=== PATIENT | female | born 1995 | race Caucasian/White ===

== ENCOUNTER 2018-06-20 14:29 | Inpatient (IN) ==
--- NOTE | 2018-06-20 14:38 | Emergency Department Report ---
HPI - General Stated complaint: Source: patient, family, EMS Mode of arrival: EMS Limitations: no limitations - History of Present Illness HPI Narrative: Patient is a 22-year-old female presents emergency room for evaluation of active labor, no movement or heart tones. Patient 3090 one half weeks, by EMS report patient has been in active labor current contractions or 2 minutes. Patient states she has not been able to feel baby move in the last hour EMS is unable to obtain heart tones. EMS diverted from [place] to [facility] when patient heart tones not detectable. - Related Data Home Medications Medication Instructions Recorded Confirmed NO ROUTINE MEDS #0 08/14/16 Allergies Allergy/AdvReac Type Severity Reaction Status Date / Time No Known Allergies Allergy Unverified 08/14/16 18:40 Review of Systems Constitutional: Denies: fever, chills ENT: Denies: throat pain, dental pain Cardiovascular: Denies: chest pain, palpitations Respiratory: Denies: cough, dyspnea, wheezes Gastrointestinal: Reports: abdominal pain. Denies: nausea, vomiting Genitourinary: Denies: frequency, hematuria Psychiatric: Denies: anxiety, depression Endocrine: Denies: fatigue Hematological/Lymphatic: Denies: easy bleeding PFSH - Social History Smoking status: Never smoker Substance use type: does not use Alcohol intake frequency: does not drink Physical Exam - General General appearance: alert, in distress - Head Head exam: normocephalic - Chest Chest inspection: Present: symmetric chest wall rise - Respiratory Respiratory exam: Absent: respiratory distress - Cardiovascular Cardiovascular exam: Present: normal rhythm - Abdominal Exam Abdominal exam: Present: soft, other (consistent with term) - Extremities Exam Extremities exam: Present: full ROM - Skin Skin exam: Present: warm, dry - Neurological Exam Neurological exam: Present: alert, oriented X3 - Psychiatric Psychiatric exam: Present: normal affect, normal mood OB/Uterine Contractions - MDM Narrative Medical decision making narrative: Dr. White has been in the emergency department was able to obtain good heart tones, patient is currently -3 and 70%. Dr. White will take over to OB for further labor - Differential Diagnosis Likely: normal delivery at term Disposition Clinical Impression: Active labor Disposition: 02 To OB Triage Condition: Stable Time of Disposition: 14:37 - Seen By: physician
[2018-06-20] MEDS: LR 1,000 ML IV PRN ×2 (14:50→15:31)
[2018-06-20] MEDS ORDERED: ACETAMINOPHEN 500 MG TABLET PO PRN (14:58)
[2018-06-20] MEDS ORDERED: CALCIUM CARBONATE Chewable 500mg TABLET PO PRN (14:58)
[2018-06-20] MEDS ORDERED: LIDOCAINE 1% (10mg/ml) 2mL INJ PF SDV ID PRN (14:58)
[2018-06-20] MEDS ORDERED: MAG-AL + SIM ORAL LIQUID 30ml PO PRN (14:58)
[2018-06-20] MEDS ORDERED: CARBOPROST 250 MCG/ML INJECTION IM PRN (14:58)
[2018-06-20] MEDS ORDERED: METHYLERGONOVINE 0.2 MG/ML INJECTION IM PRN (14:58)
[2018-06-20] MEDS ORDERED: SALINE FLUSH 10ml SYRINGE IV PRN (14:58)
[2018-06-20] MEDS: D5LR 1,000 ML IV SCH (15:35)
--- OUTSIDE RECORDS SUMMARY | 2018-06-20 15:40 | External Medical Summary | Referral Summary ---
:1995 Author Organization Via [facility] Address [address] [place] [address] Care Team Providers Name Role Phone No PCP, Pt States Primary Care Physician Encounter VC [facility] [id number] Date(s): 06/17/18 - 06/18/18 [facility] [address], [place] [address] Encounter Diagnosis (Discharge Diagnosis) - 06/18/18 Discharge Disposition: 01-Home or Self Care Attending Physician: No PCP, Pt States Admitting Physician: No PCP, Pt States Vital Signs Most recent to oldest [Reference Range]: 1 Temperature Oral [35.8-37.3 degC] 36.4 degC (06/18/18 1:30 AM) Heart Rate Monitored [60-100 bpm] 66 bpm (06/18/18 1:30 AM) Blood Pressure [90-140/60-90 mmHg] 113/55 mmHg (06/18/18 1:30 AM) Problem List Condition Effective Dates Status Health Status Informant Acute pain(Confirmed) Active Unspecified depressive Active disorder(Confirmed) (Confirmed) 08/05/16 - 05/03/17 Resolved (Confirmed) 09/14/17 Active Allergies, Adverse Reactions, Alerts No Known Allergies Medications acetaminophen 650 mg, 0 Refill(s) Start Date: 06/17/18 Status: OrderedColace 100 mg oral capsule 100 mg 1 caps, Oral, BID, as needed for constipation, # 60 caps, 2 Refill(s) Start Date: 05/04/17 Stop Date: 08/02/17 Status: Orderedferrous sulfate 325 mg (65 mg elemental iron) oral tablet 325 mg 1 tabs, Oral, TID, # 270 tabs, 0 Refill(s), Pharmacy: [id number], 1 tabs Oral TID Start Date: 12/15/16 Status: OrderedPrenatal Multivitamins 1 tabs, Oral, Daily, 0 Refill(s) Start Date: 10/03/15 Status: Ordered Results Urinalysis Most recent to oldest [Reference Range]: 1 UA Color Yellow (06/18/18 1:27 AM) UA Appear Sl Cloudy (06/18/18 1:27 AM) UA pH [5.0-8.0] 5.0 (06/18/18 1:27 AM) UA Leuk Est [Negative] Negative (06/18/18 1:27 AM) UA Nitrite [Negative] Negative (06/18/18 1:27 AM) UA Protein [Negative] Pos 1+ *ABN* (06/18/18 1:27 AM) UA Glucose [Negative] Negative (06/18/18 1:27 AM) UA Ketones [Negative] Trace *ABN* (06/18/18 1:27 AM) UA Urobilinogen [<1.0 mg/dL] 2.0 mg/dL *ABN* (06/18/18 1:27 AM) UA Bili [Negative] Negative (06/18/18 1:27 AM) UA Blood [Negative] Negative (06/18/18 1:27 AM) UA Spec Grav [1.003-1.030] 1.025 (06/18/18 1:27 AM) Type Clean Catch (06/18/18 1:27 AM) UA WBC [0-4] 0-2 (06/18/18 1:27 AM) UA RBC [0-2] 0-2 (06/18/18 1:27 AM) Epithelial Cells 0-2 (06/18/18 1:27 AM) UA Bacteria None Seen (06/18/18 1:27 AM) UA Mucous Present (06/18/18 1:27 AM) Immunizations Given and Recorded Vaccine Date Status Refusal Reason tetanus/diphth/pertuss (Tdap) adult/adol 04/13/17 Given tetanus/diphth/pertuss (Tdap) adult/adol 05/31/16 Given Social History Social History Type Response Smoking Status Never smoker; Concerns about tobacco use in household: Yes1 entered on: 04/29/17 1Boyfriend smokes outside.
--- OUTSIDE RECORDS SUMMARY | 2018-06-20 15:40 | External Medical Summary | Referral Summary ---
:1995 [address] [facility] Address [address] [place] [address] Care Team Providers Name Role Phone Ruben Osman Primary Care Physician Encounter [facility] [id number] Date(s): 04/13/17 - 04/13/[address] [facility] [address] [place] [address] [place] Discharge Diagnosis: Encounter for supervision of normal Discharge Disposition: 01-Home or Self Care Attending Physician: Trinidad Romero MD Admitting Physician: Ruben Osman MD Vital Signs Most recent to oldest [Reference Range]: 1 Temperature Oral [35.8-37.3 degC] 36.3 degC (04/13/17 10:41 AM) Peripheral Pulse Rate [60-100 bpm] 74 bpm (04/13/17 10:41 AM) Respiratory Rate [14-20 br/min] 20 br/min (04/13/17 10:41 AM) Blood Pressure [90-140/60-90 mmHg] 118/58 mmHg (04/13/17 10:41 AM) Problem List Condition Effective Dates Status Health Status Informant Acute pain(Confirmed) Active Unspecified depressive Active disorder(Confirmed) (Confirmed) 08/05/16 Active Allergies, Adverse Reactions, Alerts No Known Allergies Medications ferrous sulfate 325 mg (65 mg elemental iron) oral tablet 325 mg 1 tabs, Oral, TID, # 270 tabs, 0 Refill(s), Pharmacy: [facility], 1 tabs Oral TID Start Date: 12/15/16 Status: OrderedFlagyl 500 mg oral tablet 500 mg 1 tabs, Oral, q12hr, # 14 tabs, 0 Refill(s), Pharmacy: [facility], 1 tabs Oral q12hr,x7 days Start Date: 03/07/17 Stop Date: 03/14/17 Status: OrderedPrenatal Multivitamins 1 tabs, Oral, Daily, 0 Refill(s) Start Date: 10/03/15 Status: OrderedZantac 75 oral tablet 75 mg 1 tabs, Oral, BID, # 14 tabs, 0 Refill(s), Pharmacy: [id number], 1 tabs Oral BID,x7 days Start Date: 03/07/17 Stop Date: 03/14/17 Status: Ordered Results Urinalysis Most recent to oldest [Reference Range]: 1 UA Color Yellow (04/13/17 11:56 AM) UA Appear Clear (04/13/17 11:56 AM) UA pH [5.0-8.0] 6.0 (04/13/17 11:56 AM) UA Leuk Est [Negative] Pos 3+ *ABN* (04/13/17 11:56 AM) UA Nitrite [Negative] Negative (04/13/17 11:56 AM) UA Protein [Negative] Trace *ABN* (04/13/17 11:56 AM) UA Glucose [Negative] Negative (04/13/17 11:56 AM) UA Ketones [Negative] Negative (04/13/17 11:56 AM) UA Urobilinogen [<=1.0 mg/dL] 0.2 mg/dL (04/13/17 11:56 AM) UA Bili [Negative] Negative (04/13/17 11:56 AM) UA Blood [Negative] Negative (04/13/17 11:56 AM) UA Spec Grav [1.003-1.030] 1.025 (04/13/17 11:56 AM) Type Clean Catch (04/13/17 11:56 AM) Protein Urine Dipstick Trace (04/13/17 10:48 AM) Ketones Urine Dipstick Negative (04/13/17 10:48 AM) Glucose Urine Dipstick Negative (04/13/17 10:48 AM) UA WBC [0-4] 10-20 *ABN* (04/13/17 11:56 AM) UA RBC [0-4] 0-4 (04/13/17 11:56 AM) Epithelial Cells 10-20 (04/13/17 11:56 AM) UA Bacteria Rare (04/13/17 11:56 AM) Immunizations Given and Recorded Vaccine Date Status Refusal Reason tetanus/diphth/pertuss (Tdap) adult/adol 04/13/17 Given tetanus/diphth/pertuss (Tdap) adult/adol 05/31/16 Given Procedures No data available for this section Social History Social History Type Response Smoking Status Never smoker; Concerns about tobacco use in household: Yes1 1Boyfriend smokes outside. Assessment and Plan No data available for this section
--- OUTSIDE RECORDS SUMMARY | 2018-06-20 15:40 | External Medical Summary | Referral Summary ---
:1995 Author Organization Via [facility] Address [address] [place] [address] Care Team Providers Name Role Phone Ruben Osman Primary Care Physician Encounter [facility] Date(s): 04/22/17 - 04/22/17 [facility] [address], [place] [address] Discharge Disposition: 01-Home or Self Care Attending Physician: Nicole Alonso MD Admitting Physician: Nicole Alonso MD Vital Signs Most recent to oldest [Reference Range]: 1 Temperature Oral [35.8-37.3 degC] 36.8 degC (04/22/17 9:19 AM) Peripheral Pulse Rate [60-100 bpm] 79 bpm (04/22/17 9:19 AM) Respiratory Rate [14-20 br/min] 18 br/min (04/22/17 9:19 AM) Blood Pressure [90-140/60-90 mmHg] 110/49 mmHg (04/22/17 9:19 AM) Problem List Condition Effective Dates Status Health Status Informant Acute pain(Confirmed) Active Unspecified depressive Active disorder(Confirmed) (Confirmed) 08/05/16 Active Allergies, Adverse Reactions, Alerts No Known Allergies Medications ferrous sulfate 325 mg (65 mg elemental iron) oral tablet 325 mg 1 tabs, Oral, TID, # 270 tabs, 0 Refill(s), Pharmacy: [facility], 1 tabs Oral TID Start Date: 12/15/16 Status: OrderedFlagyl 500 mg oral tablet 500 mg 1 tabs, Oral, q12hr, # 14 tabs, 0 Refill(s), Pharmacy: [facility], 1 tabs Oral q12hr,x7 days Start Date: 03/07/17 Stop Date: 5/7/17 Status: OrderedmetroNIDAZOLE 500 mg oral tablet 500 mg 1 tabs, Oral, q12hr, X 7 days, # 14 tabs, 0 Refill(s), Pharmacy: [facility], 1 tabs Oral q12hr,x7 days Start Date: 04/22/17 Stop Date: 04/29/17 Status: OrderedPrenatal Multivitamins 1 tabs, Oral, Daily, 0 Refill(s) Start Date: 10/03/15 Status: OrderedZantac 75 oral tablet 75 mg 1 tabs, Oral, BID, # 14 tabs, 0 Refill(s), Pharmacy: [facility], 1 tabs Oral BID,x7 days Start Date: 03/07/17 Stop Date: 03/14/17 Status: Ordered Results Urinalysis Most recent to oldest [Reference Range]: 1 UA Color Yellow (04/22/17 9:45 AM) UA Appear Sl Cloudy (04/22/17 9:45 AM) UA pH [5.0-8.0] 7.0 (04/22/17 9:45 AM) UA Leuk Est [Negative] Pos 1+ *ABN* (04/22/17 9:45 AM) UA Nitrite [Negative] Negative (04/22/17 9:45 AM) UA Protein [Negative] Negative (04/22/17 9:45 AM) UA Glucose [Negative] Negative (04/22/17 9:45 AM) UA Ketones [Negative] Negative (04/22/17 9:45 AM) UA Urobilinogen [<1.0] Negative (04/22/17 9:45 AM) UA Bili [Negative] Negative (04/22/17 9:45 AM) UA Blood [Negative] Negative (04/22/17 9:45 AM) UA Spec Grav [1.003-1.030] 1.025 (04/22/17 9:45 AM) Type Clean Catch (04/22/17 9:45 AM) UA WBC [0-4] 2-5 (04/22/17 9:45 AM) UA RBC [0-2] 0-2 (04/22/17 9:45 AM) Epithelial Cells 2-5 (04/22/17 9:45 AM) UA Bacteria Rare (04/22/17 9:45 AM) UA Hyal Cast [0-3] 1-3 (04/22/17 9:45 AM) UA Mucous Present (04/22/17 9:45 AM) Microbiology Reports TEST:Affirm Vaginitis Panel STATUS:Auth (Verified) BODY SITE: SOURCE:Vaginal COLLECTED DATE/TIME:04/22/17 9:47 AMAffirm Vaginitis PanelNegative for Trichomonas vaginalis Positive for Gardnerella vaginalis Negative for Debra species Immunizations Given and Recorded Vaccine Date Status Refusal Reason tetanus/diphth/pertuss (Tdap) adult/adol 04/13/17 Given tetanus/diphth/pertuss (Tdap) adult/adol 05/31/16 Given Procedures No data available for this section Social History Social History Type Response Smoking Status Never smoker; Concerns about tobacco use in household: Yes1 1Boyfriend smokes outside. Assessment and Plan No data available for this section
--- OUTSIDE RECORDS SUMMARY | 2018-06-20 15:40 | External Medical Summary | Referral Summary ---
:1995 Author Organization Via [facility] Address [address] [place] [address] Care Team Providers Name Role Phone Zahida Gaona Primary Care Physician Encounter [facility] Date(s): 04/29/17 - 04/29/17 [facility] [address] [place] [address] [place] Discharge Diagnosis: Supervision of normal Discharge Disposition: 01-Home or Self Care Attending Physician: Andrez Flores MD Admitting Physician: Ruben Monroe MD Vital Signs Most recent to oldest [Reference Range]: 1 Temperature Oral [35.8-37.3 degC] 36.5 degC (04/29/17 11:42 AM) Peripheral Pulse Rate [60-100 bpm] 78 bpm (04/29/17 11:42 AM) Respiratory Rate [14-20 br/min] 18 br/min (04/29/17 11:42 AM) Blood Pressure [90-140/60-90 mmHg] 118/74 mmHg (04/29/17 11:42 AM) Problem List Condition Effective Dates Status Health Status Informant Acute pain(Confirmed) Active Unspecified depressive Active disorder(Confirmed) (Confirmed) 08/05/16 Active Allergies, Adverse Reactions, Alerts No Known Allergies Medications ferrous sulfate 325 mg (65 mg elemental iron) oral tablet 325 mg 1 tabs, Oral, TID, # 270 tabs, 0 Refill(s), Pharmacy: [facility], 1 tabs Oral TID Start Date: 12/15/16 Status: OrderedPrenatal Multivitamins 1 tabs, Oral, Daily, 0 Refill(s) Start Date: 10/03/15 Status: Ordered Results No data available for this section Immunizations Given and Recorded Vaccine Date Status Refusal Reason tetanus/diphth/pertuss (Tdap) adult/adol 04/13/17 Given tetanus/diphth/pertuss (Tdap) adult/adol 05/31/16 Given Procedures No data available for this section Social History Social History Type Response Smoking Status Never smoker; Concerns about tobacco use in household: Yes1 1Boyfriend smokes outside. Assessment and Plan No data available for this section
--- OUTSIDE RECORDS SUMMARY | 2018-06-20 15:40 | External Medical Summary | Referral Summary ---
:1995 Author Organization Via [facility] Address [address] [place] [address] Care Team Providers Name Role Phone Ruben Osman Primary Care Physician Encounter [facility] Date(s): 03/07/17 - 03/07/17 [facility] [address], [place] [address] Discharge Disposition: 01-Home or Self Care Attending Physician: Zeb Zaldivar MD Admitting Physician: Zeb Zaldivar MD Vital Signs Most recent to oldest [Reference Range]: 1 Temperature Oral [35.8-37.3 degC] 36.9 degC (03/07/17 2:18 PM) Peripheral Pulse Rate [60-100 bpm] 78 bpm (03/07/17 2:15 PM) Respiratory Rate [14-20 br/min] 18 br/min (03/07/17 2:18 PM) Blood Pressure [90-140/60-90 mmHg] 117/59 mmHg (03/07/17 2:15 PM) Problem List Condition Effective Dates Status Health Status Informant Acute pain(Confirmed) Active Unspecified depressive Active disorder(Confirmed) (Confirmed) 08/05/16 Active Allergies, Adverse Reactions, Alerts No Known Allergies Medications ferrous sulfate 325 mg (65 mg elemental iron) oral tablet 325 mg 1 tabs, Oral, TID, # 270 tabs, 0 Refill(s), Pharmacy: [facility], 1 tabs Oral TID Start Date: 12/15/16 Status: OrderedFlagyl 500 mg oral tablet 500 mg 1 tabs, Oral, q12hr, # 14 tabs, 0 Refill(s), Pharmacy: [facility], 1 tabs Oral q12hr,x7 days Start Date: 03/07/17 Stop Date: 03/14/17 Status: OrderedPrenatal Multivitamins 1 tabs, Oral, Daily, 0 Refill(s) Start Date: 10/03/15 Status: OrderedZantac 75 oral tablet 75 mg 1 tabs, Oral, BID, # 14 tabs, 0 Refill(s), Pharmacy: [facility], 1 tabs Oral BID,x7 days Start Date: 03/07/17 Stop Date: 03/14/17 Status: Ordered Results Urinalysis Most recent to oldest [Reference Range]: 1 UA Color Yellow (03/07/17 2:46 PM) UA Appear Sl Cloudy (03/07/17 2:46 PM) UA pH [5.0-8.0] 7.0 (03/07/17 2:46 PM) UA Leuk Est [Negative] Pos 3+ *ABN* (03/07/17 2:46 PM) UA Nitrite [Negative] Negative (03/07/17 2:46 PM) UA Protein [Negative] Negative (03/07/17 2:46 PM) UA Glucose [Negative] Negative (03/07/17 2:46 PM) UA Ketones [Negative] Pos 1+ *ABN* (03/07/17 2:46 PM) UA Urobilinogen [<1.0] Negative (03/07/17 2:46 PM) UA Bili [Negative] Negative (03/07/17 2:46 PM) UA Blood [Negative] Negative (03/07/17 2:46 PM) UA Spec Grav [1.003-1.030] 1.015 (03/07/17 2:46 PM) Type Clean Catch (03/07/17 2:46 PM) UA WBC [0-4] 5-10 *ABN* (03/07/17 2:46 PM) UA RBC [0-2] 2-5 (03/07/17 2:46 PM) Epithelial Cells 10-20 (03/07/17 2:46 PM) UA Bacteria Occasional *ABN* (03/07/17 2:46 PM) UA Mucous Present (03/07/17 2:46 PM) Microbiology Reports TEST:Affirm Vaginitis Panel STATUS:Auth (Verified) BODY SITE: SOURCE:Cervix/Vaginal COLLECTED DATE/TIME:03/07/17 2:46 PMAffirm Vaginitis PanelNegative for Trichomonas vaginalis Positive for Gardnerella vaginalis Positive for Debra species Immunizations Given and Recorded Vaccine Date Status Refusal Reason tetanus/diphth/pertuss (Tdap) adult/adol 05/31/16 Given Procedures No data available for this section Social History Social History Type Response Smoking Status Never smoker; Concerns about tobacco use in household: Yes1 1Boyfriend smokes outside. Assessment and Plan No data available for this section
--- OUTSIDE RECORDS SUMMARY | 2018-06-20 15:40 | External Medical Summary | Referral Summary ---
:1995 Author Organization Via [facility] Address [address] [place] [address] Care Team Providers Name Role Phone Ruben Osman Primary Care Physician Encounter Date(s): 04/20/17 - 04/20/[address] [facility] [address] [place] [address] [place] Discharge Diagnosis: Encounter for supervision of normal Discharge Disposition: 01-Home or Self Care Attending Physician: Andrea Mejia MD Admitting Physician: Ruben Osman MD Vital Signs Most recent to oldest [Reference Range]: 1 Temperature Oral [35.8-37.3 degC] 36.1 degC (04/20/17 9:45 AM) Peripheral Pulse Rate [60-100 bpm] 80 bpm (04/20/17 9:45 AM) Respiratory Rate [14-20 br/min] 20 br/min (04/20/17 9:45 AM) Blood Pressure [90-140/60-90 mmHg] 100/54 mmHg (04/20/17 9:45 AM) Problem List Condition Effective Dates Status Health Status Informant Acute pain(Confirmed) Active Unspecified depressive Active disorder(Confirmed) (Confirmed) 08/05/16 Active Allergies, Adverse Reactions, Alerts No Known Allergies Medications ferrous sulfate 325 mg (65 mg elemental iron) oral tablet 325 mg 1 tabs, Oral, TID, # 270 tabs, 0 Refill(s), Pharmacy: [facility], 1 tabs Oral TID Start Date: 12/15/16 Status: OrderedFlagyl 500 mg oral tablet 500 mg 1 tabs, Oral, q12hr, # 14 tabs, 0 Refill(s), Pharmacy: [facility], 1 tabs Oral q12hr,x7 days Start Date: 03/07/17 Stop Date: 03/14/17 Status: OrderedPrenatal Multivitamins 1 tabs, Oral, Daily, 0 Refill(s) Start Date: 10/03/15 Status: OrderedZantac 75 oral tablet 75 mg 1 tabs, Oral, BID, # 14 tabs, 0 Refill(s), Pharmacy: [facility], 1 tabs Oral BID,x7 days Start Date: 03/07/17 Stop Date: 03/14/17 Status: Ordered Results Urinalysis Most recent to oldest [Reference Range]: 1 Protein Urine Dipstick 1+ (30 mg/dl) (04/20/17 9:51 AM) Ketones Urine Dipstick Negative (04/20/17 9:51 AM) Glucose Urine Dipstick Negative (04/20/17 9:51 AM) Immunizations Given and Recorded Vaccine Date Status Refusal Reason tetanus/diphth/pertuss (Tdap) adult/adol 04/13/17 Given tetanus/diphth/pertuss (Tdap) adult/adol 05/31/16 Given Procedures No data available for this section Social History Social History Type Response Smoking Status Never smoker; Concerns about tobacco use in household: Yes1 1Boyfriend smokes outside. Assessment and Plan No data available for this section
--- OUTSIDE RECORDS SUMMARY | 2018-06-20 15:41 | External Medical Summary | Continuity of Care Document ---
:1995 Author Organization [facility] Allergies Active Description Code Type Severity Reaction Onset Reported/ Identified Relationship Clinical to Patient Status Yes No Known NKMA N/A N/A 10/01/2015 Allergies Yes No Known NKMA N/A N/A 10/01/2015 Allergies Yes No Known No Drug Unknown N/A 06/15/2016 Allergies Known Aller Aller gy gies Yes No Known No Aller N/A N/A 08/14/2016 Allergies Known gy Aller gies Medications Medication Packaging Start Stop Route Dosage Sig Date Date 1 caps 12/17/19 Oral 500 mg 500 cephalexin(Keflex 16 016 mg=1 caps, 500 mg oral Oral, QID, for capsule) 7 days, 28 caps, 0 Refill(s) 2 tabs 05/26/20 Oral 1,000 mg acetaminophen(acet 16 016 1,000 mg=2 aminophen) tabs, Oral, Once 1 caps 05/26/20 Oral 50 mg 50 diphenhydrAMINE(Be 16 016 mg=1 caps, nadryl) Oral, Once 1 tabs 05/30/20 Oral 1 multivitamin, 16 016 tabs, Oral, (NatalCare Daily Plus) 20 mL 05/30/20 IntraDermal 600 mg 600 chloroprocaine(chl 16 016 mg=20 mL, oroprocaine 3% IntraDermal, As preservative-free Indicated, PRN: injectable Other (See solution) Comment) 1,000 mL 05/30/20 IV 125 Dextrose 5% in 16 016 mL/hr, IV Lactated Ringers Injectio(Dextrose 5% in Lactated Ringers 1,000 mL) 30 mL 05/30/20 Topical 30 mineral 16 016 mL, Topical, As oil(mineral oil) Indicated, PRN: Other (See Comment) 1 caps 05/30/20 Oral 100 mg 100 docusate(Colace) 16 016 mg=1 caps, Oral, Daily, PRN: Constipation 1 tabs 05/30/20 Oral 800 mg 800 ibuprofen(ibuprofe 16 016 mg=1 tabs, n) Oral, q8hr (scheduled) 1 rob 05/30/20 Topical 1 benzocaine 16 016 rob, Topical, topical(Dermoplast QID, PRN: Other 20% topical spray) (See Comment) 1 rob 05/30/20 Topical 1 hydrocortisone 16 016 rob, Topical, topical(Anusol-HC q6hr, PRN: 2.5% rectal cream Hemorrhoids with applicator) 1 tabs 05/30/20 Oral 1 oxyCODONE-acetamin 16 016 tabs, Oral, ophen(Percocet q3hr, PRN: Pain 5/325 oral tablet) Moderate (4-6) 2 tabs 05/30/20 Oral 2 oxyCODONE-acetamin 16 016 tabs, Oral, ophen(oxyCODONE-ac q4hr, PRN: Pain etaminophen 5 mg-325 mg oral tablet) 1 tabs 05/31/20 Oral 1 multivitamin, 16 017 tabs, Oral, (NatalCare Daily, 0 Plus) Refill(s) 1 tabs 05/31/20 Oral 325 mg 325 ferrous 16 017 mg=1 tabs, sulfate(ferrous Oral, TID, 90 sulfate 325 mg (65 tabs, 0 mg elemental iron) Refill(s) oral tablet) 1 tabs 05/31/20 Oral 800 mg 800 ibuprofen(IBU 800 16 016 mg=1 tabs, mg oral tablet) Oral, q8hr, for 10 days, 30 tabs, 0 Refill(s) 1 caps 05/31/20 Oral 100 mg 100 docusate(Colace 16 017 mg=1 caps, 100 mg oral Oral, BID, PRN: capsule) as needed for constipation, 20 caps, 0 Refill(s) 2 mL 10/05/20 IV Push 4 mg 4 ondansetron(Zofran 16 mg=2 mL, IV ) Push, q30min, PRN: Nausea 1 tabs 12/15/19 Oral 500 mg 500 metroNIDAZOLE(metr 17 017 mg=1 tabs, oNIDAZOLE 500 mg Oral, q12hr, oral tablet) for 7 days, 14 tabs, 0 Refill(s) 1 tabs 12/15/19 Oral 325 mg 325 ferrous 17 mg=1 tabs, sulfate(ferrous Oral, TID, 270 sulfate 325 mg (65 tabs, 0 mg elemental iron) Refill(s) oral tablet) 1 rob 01/12/20 Topical 1 nystatin 17 017 rob, Topical, topical(nystatin TID, 15 g, 0 100,000 units/g Refill(s) topical cream) 1 tabs 01/12/20 Oral 150 mg 150 fluconazole(flucon 17 017 mg=1 tabs, azole 150 mg oral Oral, Once, 1 tablet) tabs, 0 Refill(s) 1 tabs 01/12/20 Oral 325 mg 325 ferrous 17 017 mg=1 tabs, sulfate(ferrous Oral, BID, 270 sulfate 325 mg (65 tabs, 0 mg elemental iron) Refill(s) oral tablet) 2 tabs 03/07/20 Oral 1,000 mg acetaminophen(acet 17 017 1,000 mg=2 aminophen) tabs, Oral, Once 1 tabs 03/07/20 Oral 75 mg 75 ranitidine(Zantac 17 017 mg=1 tabs, 75 oral tablet) Oral, BID, for 7 days, 14 tabs, 0 Refill(s) 1 tabs 03/07/20 Oral 500 mg 500 metroNIDAZOLE(Flag 17 017 mg=1 tabs, yl 500 mg oral Oral, q12hr, tablet) for 7 days, 14 tabs, 0 Refill(s) 0.5 mL 04/13/20 IntraMuscular 0.5 tetanus/diphth/per 17 017 mL, tuss (Tdap) IntraMuscular, adult/adol(Boostri Once x (Tdap) intramuscular suspension) 1 caps 04/22/20 Oral 50 mg 50 diphenhydrAMINE(Be 17 017 mg=1 caps, nadryl) Oral, Once 2 tabs 04/22/20 Oral 1,000 mg acetaminophen(Tyle 17 017 1,000 mg=2 nol range dose) tabs, Oral, Once 1 tabs 04/22/20 Oral 500 mg 500 metroNIDAZOLE(metr 17 017 mg=1 tabs, oNIDAZOLE 500 mg Oral, q12hr, oral tablet) for 7 days, 14 tabs, 0 Refill(s) 20 mL 05/03/20 IntraDermal 600 mg 600 chloroprocaine(chl 17 017 mg=20 mL, oroprocaine 3% IntraDermal, As preservative-free Indicated, PRN: injectable Other (See solution) Comment) 1,000 mL 05/03/20 IV 125 Dextrose 5% in 17 017 mL/hr, IV Lactated Ringers Injectio(Dextrose 5% in Lactated Ringers Injection 1,000 mL) 30 mL 05/03/20 Topical 30 mineral 17 017 mL, Topical, As oil(mineral oil) Indicated, PRN: Other (See Comment) 1 caps 05/03/20 Oral 100 mg 100 docusate(Colace) 17 017 mg=1 caps, Oral, Daily, PRN: Constipation 1 rob 05/03/20 Topical 1 benzocaine 17 017 rob, Topical, topical(Dermoplast QID, PRN: Other 20% topical spray) (See Comment) 1 rob 05/03/20 Topical 1 hydrocortisone 17 017 rob, Topical, topical(Anusol-HC q6hr, PRN: 2.5% rectal cream Hemorrhoids with applicator) 1 tabs 05/03/20 Oral 1 oxycodone-acetamin 17 017 tabs, Oral, ophen(Percocet q3hr, PRN: Pain 5/325 oral tablet) Moderate (4-6) 2 tabs 05/03/20 Oral 2 oxycodone-acetamin 17 017 tabs, Oral, ophen(oxyCODONE-ac q4hr, PRN: Pain etaminophen 5 Moderate (4-6) mg-325 mg oral tablet) 0.5 mL 05/03/20 SubCutaneous 0.5 measles/mumps/rube 17 017 mL, lla virus SubCutaneous, vaccine(measles/mu Once, PRN: mps/rubella virus Other (See vaccine) Comment) 1 tabs 05/04/20 Oral 325 mg 325 ferrous 17 017 mg=1 tabs, sulfate(ferrous Oral, Daily sulfate) 1 tabs 05/04/20 Oral 800 mg 800 ibuprofen(ibuprofe 17 017 mg=1 tabs, n 800 mg oral Oral, q8hr, for tablet) 10 days, 30 tabs, 0 Refill(s) 06/17/20 650 mg 650 acetaminophen(acet 18 mg, 0 Refill(s) aminophen) 2 tabs 06/18/20 Oral 1,000 mg acetaminophen(acet 18 018 1,000 mg=2 aminophen) tabs, Oral, Once 1 caps 06/18/20 Oral 50 mg 50 diphenhydrAMINE(Be 18 018 mg=1 caps, nadryl) Oral, Once Problems Date Dx Attending Type Code Diagnosis Diagnosed By Coded 10/09/2015 Kasi PAYNE, Final N83.20 Unspecified ovarian [place] cysts 10/09/2015 Kasi PAYNE, Final O20.0 Threatened [place] 10/09/2015 Kasi PAYNE, Final O34.81 Maternal care for [place] other abnormalities of pelvic organs, first trimester 10/09/2015 Kasi PAYNE, Reason O99.89 Other specified [place] diseases and conditions complicating , childbirth 10/09/2015 Kasi PAYNE, Final Z3A.01 Less than 8 weeks [place] gestation of 11/26/2015 Anna HOLDEN 133.0 Scabies ANGELA 12/20/2015 Judy, Final K21.9 Gastro-esophageal Rosalio A reflux disease without esophagitis 12/20/2015 Judy, Final O23.42 Unspecified Rosalio A infection of urinary tract in , second trimester 12/20/2015 Judy, Final O99.612 Diseases of the Rosalio A digestive system complicating , second trimester 12/20/2015 Judy, Reason O99.89 Other specified Rosalio A diseases and conditions complicating , childbirth 12/20/2015 Judy, Final Z3A.17 17 weeks gestation Rosalio A of 06/02/2016 Mike,, Final O69.81X0 Labor and delivery Andres complicated by cord around neck, without compression, no 06/02/2016 Mike, Final O70.1 Second degree Andres perineal laceration during delivery 06/02/2016 Mike,, Final Z23 Encounter for Andres immunization 06/02/2016 Mike,, Final Z37.0 Single live Andres 06/02/2016 Mike,, Final Z3A.40 40 weeks gestation Andres of 06/02/2016 Sukhwinder, Final O09.293 Supervision of Sepideh with other poor reproductive or obstetric history, 06/02/2016 Sukhwinder, Reason O99.89 Other specified Sepideh diseases and conditions complicating , childbirth 06/02/2016 Pretty Final Z03.71 Encounter for Sepideh suspected problem with amniotic cavity and membrane ruled out 06/02/2016 Sukhwinder, Final Z3A.40 40 weeks gestation Sepideh of 10/06/2016 Gomez Howard Final M79.1 Myalgia 10/06/2016 Gomez Howard Reason O99.89 Other specified diseases and conditions complicating , childbirth 10/06/2016 Gomez Howard Final R10.11 Right upper quadrant pain 10/06/2016 Gomez Howard Final Z3A.08 8 weeks gestation of 10/06/2016 Gomez Howard Final Z90.49 Acquired absence of other specified parts of digestive tract 12/14/2016 Andrez Flores Final Z34.80 Encounter for P supervision of other normal , unspecified trimester 01/11/2017 Zeb Zaldivar Final Z34.90 Encounter for supervision of normal , unspecified, unspecified trimester 03/09/2017 Zaldivar Donald Final N76.0 Acute vaginitis 03/09/2017 Zaldivar Donald Reason O20.9 Hemorrhage in early , unspecified 03/09/2017 Zaldivar Donald Final O23.593 Infection of other part of genital tract in , third trimester 03/09/2017 Zaldivar Donald Final Z3A.30 30 weeks gestation of 04/13/2017 Trinidad Romero Final Z34.90 Encounter for C supervision of normal , unspecified, unspecified trimester 04/20/2017 Jackie, Final Z34.90 Encounter for Andrea Oswaldo supervision of normal , unspecified, unspecified trimester 04/28/2017 Gavin,, Final N76.0 Acute vaginitis Nicole 04/28/2017 Gavin,, Final O23.593 Infection of other Nicole part of genital tract in , third trimester 04/28/2017 Gavin,, Reason O26.893 Other specified Nicole related conditions, third trimester 04/28/2017 Gavin,, Final Z3A.37 37 weeks gestation Nicole of 04/29/2017 Andrez Flores Final Z34.90 Encounter for Marilynn supervision of normal , unspecified, unspecified trimester 05/06/2017 Sukhwinder, Final D64.9 Anemia, unspecified Sepideh 05/06/2017 Sukhwinder, Admitting O80 Encounter for Sepideh full-term uncomplicated delivery 05/06/2017 Sukhwinder, Final O99.02 Anemia complicating Sepideh childbirth 05/06/2017 Sukhwinder, Final Z37.0 Single live Sepideh 05/06/2017 Sukhwinder, Final Z3A.39 39 weeks gestation Sepideh of 05/06/2017 Sukhwinder, Final O70.0 First degree Sepideh perineal laceration during delivery Procedures Code Description Performed By Performed On 1000F 11/26/2015 1036F 11/26/2015 G8448 11/26/2015 G8553 11/26/2015 89315 11/26/2015 Drainage of 05/30/2016 11672XL Amniotic Fluid, Therapeutic from Products of Conception, Via Na 3001 Initial ob 12/14/2016 visit 3001 3003 01/11/2017 services 3003 3003 04/13/2017 services 3003 20247 Immunization 04/13/2017 administration (includes percutaneous, intradermal, subcutaneous, or intramuscular injections); 1 vaccine (single or combination vaccine/toxoid).. 13303 Tetanus, 04/13/2017 diphtheria toxoids and acellular pertussis vaccine (Tdap), when administered to individuals 7 years or older, for intramuscular use 3003 04/29/2017 services 3003 93190 Office or 04/29/2017 other outpatient visit for the evaluation and management of an established patient, which requires at least 2 of these 3 bowling components: An expanded problem focused history; An expanded prob 38808 Antepartum 04/29/2017 care only; 4-6 visits Repair Vagina, 05/03/2017 [id number] Via Natural or Artificial Opening Results Test Result Range AmniSure ROM - 05/26/16 01:00 AmniSure ROM Negative mg/dL Negative RPR - 05/30/16 14:08 RPR Non-reactive NA Opiate Confirmation, Urine - 05/31/16 08:51 Codeine Not Detected ng/mL Hydrocodone Not Detected ng/mL Hydromorphone Not Detected ng/mL Morphine >5000 ng/mL CBC W/DIFF - 06/15/16 07:02 BASOPHIL # 0.1 k/cumm 0.0-0.2 BASOPHIL % 1 % 0-1 EOSINOPHIL # 0.2 k/cumm 0.1-0.5 EOSINOPHIL % 2 % 2-4 GRANULOCYTE # 8.9 k/cumm 2.0-9.0 GRANULOCYTE % 76 % 50-75 LYMPHOCYTE # 1.8 k/cumm 1.0-4.0 LYMPHOCYTE % 15 % 20-30 MEAN CELL HGB 24.8 pg 27.0-33.0 MEAN CELL HGB CONCENTRATION 31.4 g/dL 32.0-37.0 MEAN CELL VOLUME 79.0 fl 80.0-100.0 MONOCYTE # 0.8 k/cumm 0.1-1.0 MONOCYTE % 7 % 4-6 RED BLOOD CELL 4.47 m/cumm 4.00-6.00 RED CELL DISTRIBUTION WIDTH 15.2 % 11.0-15.6 WHITE BLOOD CELL 11.7 k/cumm 5.0-10.0 HEMOGLOBIN 11.1 gm/dL 12.0-16.0 HEMATOCRIT 35.3 % 37.0-47.0 PLATELET COUNT 416 k/cumm 150-400 METABOLIC PANEL, COMPREHN - 06/15/16 07:02 POTASSIUM 4.2 mmol/L 3.5-5.3 EST GFR (MDRD) > 60 mL/min > 59 ANION GAP 15 mmol/L 5-15 GLUCOSE 83 mg/dL 70-99 CALCIUM 9.1 mg/dL 8.5-10.1 BLOOD UREA NITROGEN 14 mg/dL 7-20 CREATININE 0.9 mg/dL 0.6-1.0 SODIUM 144 mmol/L 135-148 CHLORIDE 108 mmol/L 98-110 AST/SGOT 20 Units/L 10-37 ALT/SGPT 17 Units/L < 66 CARBON DIOXIDE 21 mmol/L 21-32 TOTAL PROTEIN 7.4 gm/dL 6.4-8.2 ALBUMIN 3.6 gm/dL 3.4-5.0 BILI TOTAL 0.2 mg/dL 0.0-1.0 ALKALINE PHOSPHATASE TOTAL 111 IU/L 45-117 LIPASE - 06/15/16 07:02 LIPASE 205 Units/L 73-393 URINALYSIS, ROUTINE - 06/15/16 07:51 UA LEUKOCYTE ESTERASE DIPSTICK 1+ NEGATIVE UA NITRITE DIPSTICK NEGATIVE NEGATIVE UA PROTEIN DIPSTICK TRACE NEGATIVE UA GLUCOSE DIPSTICK NEGATIVE NEGATIVE UA KETONE DIPSTICK TRACE NEGATIVE UA UROBILINOGEN DIPSTICK NORMAL NORMAL UA BILIRUBIN DIPSTICK NEGATIVE NEGATIVE UA BLOOD DIPSTICK NEGATIVE NEGATIVE UA SPECIFIC GRAVITY 1.025 1.015-1.025 UR PH 6.0 5.0-7.0 UA MICROSCOPIC - 06/15/16 07:51 UA BACTERIA 2+ NEGATIVE UA EPITHELIAL CELLS 1+ epi/hpf 0 - 1+ UA MUCUS 2+ NEG TO 1+ UA RBC 0-3 rbc/hpf 0 - 3 UA VOLUME FOR EXAM 12.0 mL (12mL STD) UA WBC 10-20 wbc/hpf 0 - 5 L600.0175 - 06/24/16 18:10 SPECIMEN TYPE, URINE [place] COLOR,URINE YELLOW YELLOW TURBIDITY, URINE CLOUDY CLEAR SPECIFIC GRAVITY,URINE 1.020 1.015-1.025 PH, URINE - DIPSTICK 8.5 5.0-8.0 LEUKOCYTE ESTERASE ,URINE NEGATIVE NEGATIVE NITRITE,URINE NEGATIVE NEGATIVE PROTEIN,URINE - DIPSTICK 1+ NEGATIVE GLUCOSE, URINE - DIPSTICK NEGATIVE NEGATIVE KETONES,URINE - DIPSTICK NEGATIVE NEGATIVE UROBILINOGEN,URINE 0.2 EU/DL NORMAL BILIRUBIN,URINE - DIPSTICK NEGATIVE NEGATIVE BLOOD, URINE 3+ NEGATIVE L600.0175 - 06/24/16 18:10 SPECIMEN TYPE, URINE [place] COLOR,URINE RED YELLOW L100.0050 - 06/24/16 18:18 WBC - WHITE BLOOD COUNT 9.7 T/MM3 4.5-11.0 RED BLOOD COUNT 4.49 M/MM3 4.00-5.20 HGB - HEMOGLOBIN 11.1 GM/DL 12-16 HCT - HEMATOCRIT 36.4 % 36-46 MEAN CORPUSCULAR VOLUME 81.1 UM3 80-100 MEAN CORPUSCULAR HGB 24.7 UUG 26-34 MEAN CORPUSCULAR HGB CONC(MCHC 30.5 GM/DL 31-37 RDW STANDARD DEVIATION 45.4 FL 36.9-50.2 PLT - PLATELET COUNT 308 T/MM3 130-400 MEAN PLATELET VOLUME 11.2 UM3 9.4-12.4 NEUTROPHILS % (AUTO) 69.5 % 33-66 LYMPHOCYTES % (AUTO) 22.5 % 23-45 MONOCYTES % (AUTO) 5.3 % 0-9.0 EOSINOPHILS % (AUTO) 2.1 % 0-4 BASOPHILS % (AUTO) 0.3 % 0-2 IMMATURE GRANULOCYTE % (AUTO) 0.3 % 0.0-0.5 NEUTROPHILS # (AUTO) 6.8 T/MM3 1.8-7.7 LYMPHOCYTES # (AUTO) 2.2 T/MM3 1-4.8 MONOCYTES # (AUTO) 0.5 T/MM3 0-0.8 EOSINOPHILS # (AUTO) 0.2 T/MM3 0-0.5 BASOPHILS # (AUTO) 0.0 T/MM3 0-0.2 IMMATURE GRANULOCYTE # (AUTO) 0.03 T/MM3 0.00-0.03 L200.0020 - 06/24/16 18:18 ICTERUS < 2 0-7 HEMOLYSIS < 15 0-25 L200.1950 - 06/24/16 18:18 LIPASE 185 U/L 23-300 UR TEST - 06/25/16 07:50 UR TEST NEGATIVE NEGATIVE L400.5000 - 08/14/16 18:19 CARBOXYHEMOGLOBIN 4.2 % 0.5-1.5 L200.0050 - 08/14/16 18:19 ICTERUS < 2 0-7 HEMOLYSIS < 15 0-25 Urinalysis with reflex microscopic - 10/05/16 02:26 Appearance Clear NA Bilirubin Negative NA Negative Blood Negative NA Negative Color Yellow NA Glucose, Urine Negative Negative Ketones Negative Negative Leukocyte Esterase Trace NA Negative Nitrites Negative NA Negative pH 6.0 NA 5.0-8.0 Protein Negative NA Negative Specific [place] 1.025 NA 1.003-1.030 UA Collection type Clean Catch NA Urobilinogen Negative mg/dL <1.0 Urine Microscopic - 10/05/16 02:26 Bacteria None Seen NA Epithelial Cells 2 /HPF RBC, Urine 0 /HPF 0-2 Urine Mucus Present NA WBC, Urine 2 /HPF 0-4 CBC With Platelet and Differential - 10/05/16 02:43 Absolute Basophils 0.02 10*3 0.00-0.20 Absolute Eosinophils 0.10 10*3 0.00-0.50 Absolute Lymphocytes 2.10 10*3 0.80-3.30 Absolute Monocytes 0.68 10*3 0.30-1.00 Absolute Neutrophils 6.17 10*3 1.90-7.00 Basophils 0 % 0-2 Eosinophils 1 % 0-4 HCT 31.2 % 37.0-47.0 HGB 9.9 g/dL 12.0-16.0 Immature Granulocytes 0.2 % 0.0-1.0 Lymphocytes 23 % 20-46 MCH 25.0 pg 27.0-32.0 MCHC 31.7 g/dL 32.0-36.0 MCV 78.8 fL 82.0-99.0 Monocytes 8 % 4-11 MPV 10.2 fL 9.4-12.4 Neutrophils 68 % 51-75 Nucleated RBC Automated 0.0 /100 WBC Platelet Count 288 K/uL 150-400 RBC 3.96 10*6/uL 4.00-5.20 RDW 14.8 % 11.5-14.5 WBC 9.1 K/uL 4.8-10.8 Comprehensive Metabolic Panel (CMP) - 10/05/16 02:43 Albumin 3.2 g/dL 3.5-4.8 Alkaline Phosphatase 57 U/L 26-104 ALT (SGPT) 8 U/L 14-54 Anion Gap 6 NA 3-20 AST (SGOT) 14 U/L 15-41 Bilirubin Total 0.3 mg/dL 0.2-1.2 BUN 8 mg/dL 4-20 Calcium 8.5 mg/dL 8.6-10.0 Chloride 110 mEq/L 99-109 CO2 20 mEq/L 22-32 Creatinine 0.75 mg/dL 0.44-1.03 Globulin 2.9 g/dL 1.9-4.3 Glucose 93 mg/dL 70-100 Potassium 3.5 mEq/L 3.6-5.1 Protein 6.1 g/dL 6.1-7.9 Sodium 136 mEq/L 136-144 Lipase - 10/05/16 02:43 Lipase 28 U/L 8-48 eGFR - 10/05/16 02:43 eGFR >60 NA >60 Urinalysis, Dipstick Only - 12/14/16 13:19 Appearance Clear NA Bilirubin Positive NA Negative Blood Trace NA Negative Color Yellow NA Glucose, Urine Negative NA Negative Ketones Negative NA Negative Leukocyte Esterase Pos 1+ NA Negative Nitrites Negative NA Negative pH 5.5 NA 5.0-8.0 Protein Pos 1+ NA Negative Specific [place] 1.030 NA 1.003-1.030 UA Collection type Clean Catch NA Urobilinogen 0.2 mg/dL <=1.0 Obstetric Panel - 12/14/16 13:21 Absolute Basophils 0.02 10*3/uL 0.00-0.20 Absolute Eosinophils 0.11 10*3/uL 0.00-0.50 Absolute Lymphocytes 1.76 10*3/uL 0.80-3.30 Absolute Monocytes 0.64 10*3/uL 0.30-1.00 Absolute Neutrophils 6.33 10*3/uL 1.90-7.00 Basophils 0 % 0-2 Eosinophils 1 % 0-4 HCT 33.1 % 37.0-47.0 HGB 10.4 g/dL 12.0-16.0 Immature Granulocytes 0.7 % 0.0-1.0 Lymphocytes 20 % 20-46 MCH 26.2 pg 27.0-32.0 MCHC 31.4 g/dL 32.0-36.0 MCV 83.4 fL 82.0-99.0 Monocytes 7 % 4-11 MPV 11.7 fL 8.8-14.8 Neutrophils 71 % 51-75 Platelet Count 280 K/uL 150-400 RBC 3.97 10*6/uL 4.00-5.20 RDW 16.4 % 11.5-14.5 WBC 8.9 K/uL 4.8-10.8 Glucose - 12/14/16 13:21 Glucose 87 mg/dL 70-99 HIV Antigen/Antibody Combo - 12/14/16 13:21 HIV Antigen/Antibody Combo Negative NA Type and Screen - 12/14/16 13:21 ABO and Rh NA Antibody Screen NA Quad Screen, Maternal - 12/14/16 14:35 AFP SEE BELOW NA Down syndrome age risk 1 NA Down syndrome risk est 1 NA hCG, Total SEE BELOW NA Inhibin SEE BELOW NA Interpretation SEE BELOW NA Trisomy 18 screen risk <1 NA uE3 SEE BELOW NA Black race non-Black NA Calculated age at KRYSTAL 21 years NA KRYSTAL by LMP 05/12/2017 NA GA on collection by dates 18,5 wk,d GA used in risk estimate Dates estimate NA Insulin depend diabetes None NA Maternal Weight KG 74 kg Maternal Weight Pounds 163 lbs Recommended Follow Up None. NA General Test Information SEE BELOW NA Other Information Initial testing NA Urinalysis with reflex microscopic - 03/07/17 14:46 Appearance Sl Cloudy NA Bilirubin Negative NA Negative Blood Negative NA Negative Color Yellow NA Glucose, Urine Negative Negative Ketones Pos 1+ Negative Leukocyte Esterase Pos 3+ NA Negative Nitrites Negative NA Negative pH 7.0 NA 5.0-8.0 Protein Negative NA Negative Specific [place] 1.015 NA 1.003-1.030 UA Collection type Clean Catch NA Urobilinogen Negative mg/dL <1.0 Urine Microscopic - 03/07/17 14:46 Bacteria Occasional NA Epithelial Cells 10 /HPF RBC, Urine 2 /HPF 0-2 Urine Mucus Present NA WBC, Urine 5 /HPF 0-4 Urinalysis with reflex microscopic - 04/13/17 11:56 Appearance Clear NA Bilirubin Negative NA Negative Blood Negative NA Negative Color Yellow NA Glucose, Urine Negative NA Negative Ketones Negative NA Negative Leukocyte Esterase Pos 3+ NA Negative Nitrites Negative NA Negative pH 6.0 NA 5.0-8.0 Protein Trace NA Negative Specific [place] 1.025 NA 1.003-1.030 UA Collection type Clean Catch NA Urobilinogen 0.2 mg/dL <=1.0 Urine Microscopic - 04/13/17 11:56 Bacteria Rare NA Epithelial Cells 10 /HPF RBC, Urine 0 /HPF 0-4 WBC, Urine 10 /HPF 0-4 Urinalysis with reflex microscopic - 04/22/17 09:45 Appearance Sl Cloudy NA Bilirubin Negative NA Negative Blood Negative NA Negative Color Yellow NA Glucose, Urine Negative Negative Ketones Negative Negative Leukocyte Esterase Pos 1+ NA Negative Nitrites Negative NA Negative pH 7.0 NA 5.0-8.0 Protein Negative NA Negative Specific [place] 1.025 NA 1.003-1.030 UA Collection type Clean Catch NA Urobilinogen Negative mg/dL <1.0 Urine Microscopic - 04/22/17 09:45 Bacteria Rare NA Epithelial Cells 2 /HPF Hyaline Casts 1 /LPF 0-3 RBC, Urine 0 /HPF 0-2 Urine Mucus Present NA WBC, Urine 2 /HPF 0-4 CBC With Platelet and Differential - 05/03/17 02:50 Absolute Basophils 0.03 10*3/uL 0.00-0.20 Absolute Eosinophils 0.11 10*3/uL 0.00-0.50 Absolute Lymphocytes 3.05 10*3/uL 0.80-3.30 Absolute Monocytes 0.74 10*3/uL 0.30-1.00 Absolute Neutrophils 5.13 10*3/uL 1.90-7.00 Basophils 0 % 0-2 Eosinophils 1 % 0-4 HCT 30.1 % 37.0-47.0 HGB 9.5 g/dL 12.0-16.0 Immature Granulocytes 0.5 % 0.0-1.0 Lymphocytes 34 % 20-46 MCH 25.1 pg 27.0-32.0 MCHC 31.6 g/dL 32.0-36.0 MCV 79.6 fL 82.0-99.0 Monocytes 8 % 4-11 MPV 10.0 fL 9.4-12.4 Neutrophils 56 % 51-75 Nucleated RBC Automated 0.0 /100 WBC Platelet Count 255 K/uL 150-400 RBC 3.78 10*6/uL 4.00-5.20 RDW 16.5 % 11.5-14.5 WBC 9.1 K/uL 4.8-10.8 ABO and Rh - 05/03/17 02:50 ABO and Rh NA Antibody Screen - 05/03/17 02:50 Antibody Screen NA CBC W/DIFF - 06/09/18 11:25 BASOPHIL # 0.0 k/cumm 0.0-0.2 BASOPHIL % 0.5 % 0-1 EOSINOPHIL # 0.1 k/cumm 0.1-0.5 EOSINOPHIL % 0.9 % 2-4 GRANULOCYTE # 5.4 k/cumm 2.0-9.0 GRANULOCYTE % 66.3 % 50-75 LYMPHOCYTE # 1.8 k/cumm 1.0-4.0 LYMPHOCYTE % 22.6 % 20-30 MEAN CELL HGB 24.0 pg 27.0-33.0 MEAN CELL HGB CONCENTRATION 30.9 g/dL 32.0-37.0 MEAN CELL VOLUME 77.9 fl 80.0-100.0 MONOCYTE # 0.7 k/cumm 0.1-1.0 MONOCYTE % 8.6 % 4-6 MEAN PLATELET VOLUME 11.3 fl 8.5-10.9 RED BLOOD CELL 3.66 m/cumm 4.00-6.00 RED CELL DISTRIBUTION WIDTH 14.7 % 11.0-15.6 WHITE BLOOD CELL 8.1 k/cumm 5.0-10.0 HEMOGLOBIN 8.8 gm/dL 12.0-16.0 HEMATOCRIT 28.5 % 37.0-47.0 NRBC % 0.0 /100 WBC 0.0-0.0 PLATELET COUNT 270 k/cumm 150-400 IMMATURE GRANULOCYTE % 1.1 % 0.0-0.6 IMMATURE GRANULOCYTE # 0.09 k/cumm 0.00-0.09 METABOLIC PANEL, [facility] - 06/09/18 11:25 POTASSIUM 3.6 mmol/L 3.5-5.3 EST GFR (MDRD) > 60 mL/min > 59 ANION GAP 15 mmol/L 5-15 EST CrCl (CG) > 60 mL/min > 59 GLUCOSE 71 mg/dL 70-99 CALCIUM 8.5 mg/dL 8.5-10.1 BLOOD UREA NITROGEN 12 mg/dL 7-20 CREATININE 0.7 mg/dL 0.6-1.0 SODIUM 140 mmol/L 135-148 CHLORIDE 106 mmol/L 98-110 AST/SGOT 17 Units/L 10-37 ALT/SGPT 13 Units/L < 66 CARBON DIOXIDE 19 mmol/L 21-32 TOTAL PROTEIN 6.8 gm/dL 6.4-8.2 ALBUMIN 2.7 gm/dL 3.4-5.0 BILI TOTAL 0.3 mg/dL 0.0-1.0 ALKALINE PHOSPHATASE TOTAL 152 IU/L 45-117 Encounters ACCT No. Visit Discharge Status Pt. Type Provider Facility Loc./Unit Complaint Date/Time [id number] 01/13/2017 01/13/2017 DIS Emergenc Carlee Purdy2WOBED 768 13:00:00 16:52:00 y Naresh PAYNE [facility] [id number] 11/02/2016 11/02/2016 DIS Emergenc Felipa PAYNE, Luis M [facility] 901 19:39:00 20:45:00 y [facility] [id number] 06/24/2016 06/26/2016 DIS Outpatie Chele Purdy8TN 668 20:56:00 11:16:00 nt , [facility] [id number] 06/15/2016 06/15/2016 DIS Emergenc Kimberly PAYNE, Luis M PurdyEDS 832 06:11:00 08:21:00 y Abhijit Chacon [facility] [id number] 01/01/2016 01/01/2016 DIS Outpatie Enoc PAYNE, Luis M PurdyWRAU 196 10:04:00 10:04:00 nt Alessandro Chacon [facility] [id number] 06/09/2018 Document 788 15:37:00 Registra tion [id number] 06/09/2018 Document 858 10:58:00 Registra tion [id number] 04/29/2017 04/29/2017 CLS Outpatie Heiland, Via [facility] fu ob 877 10:48:00 23:59:59 nt Ruben Crespo [facility] [id number] 04/29/2017 04/29/2017 DIS Outpatie Mark, [facility] OB CARE 520 13:13:00 23:59:00 nt Andrez P [facility] [id number] 04/29/2017 04/29/2017 DIS Outpatie Mark, Via [facility] ob 922 11:40:00 23:59:00 nt Andrez P [facility] [id number] 04/20/2017 04/20/2017 DIS Outpatie Jackie, Via [facility] fu ob 958 09:30:00 23:59:00 nt Andrea Chacon [facility] [id number] 04/13/2017 04/13/2017 DIS Outpatie Heather, Via [facility] 302 10:33:00 23:59:00 nt Trinidad Ybarra [facility] [id number] 01/11/2017 01/11/2017 DIS Outpatie Seery, Via [facility] fu ob 102 13:56:00 23:59:00 nt Zeb Pyle [facility] [id number] 12/14/2016 12/14/2016 DIS Outpatie Mark, [facility] [facility] NPV/ QU[facility]ITATIVE [facility]QU[facility] IOB 373 13:12:00 23:59:00 nt [facility] [id number] 05/03/2017 Document 070 00:33:00 Registra tion [id number] 04/22/2017 Document 994 09:01:00 Registra tion [id number] 03/07/2017 Document 160 13:53:00 Registra tion [id number] 10/05/2016 Document 110 02:05:00 Registra tion [id number] 05/30/2016 Document 278 11:36:00 Registra tion [id number] 05/26/2016 Document 022 00:27:00 Registra tion [id number] 08/14/2016 08/14/2016 DIS Emergenc JOYA PAYNE, [place] ED 865 17:47:00 19:15:00 y [facility] [id number] 06/24/2016 06/24/2016 DIS Emergenc ELISSA PAYNE, [place] ED 573 17:34:00 20:12:00 y [facility] [id number] 09/25/2016 Document 458 15:34:00 Registra tion [id number] 01/15/2017 ACT Document 23:40:32 Registra tion [id number] 05/03/2017 05/05/2017 DIS Inpatien Sukhwinder,, Via [facility] J4W OB 070 00:33:00 17:37:00 t [facility] on [facility] [id number] 04/22/2017 04/22/2017 DIS Outpatie Gavin,, Via [facility] J4LD ob 994 09:01:00 12:10:00 nt [facility] on [facility] [id number] 03/07/2017 03/07/2017 DIS Outpatie Kayley,, Via [facility] J4LD Obstetrics 160 13:53:00 15:14:00 nt [facility] on [facility] [id number] 10/05/2016 10/05/2016 DIS Emergenc Jason,, Via [facility] ED side pain 110 02:05:00 03:55:[address] [facility] on [place] [id number] 05/30/2016 06/01/2016 DIS Inpatien Mike,, Via [facility] J4W Obstetrics 278 11:36:00 21:30:00 t [facility] on [facility] [id number] 05/26/2016 05/26/2016 DIS Outpatie Sukhwinder,, Via [facility] J4LD ob 022 00:27:00 02:30:00 nt [facility] on [place] [id number] 12/17/2015 12/17/2015 DIS Emergenc Judy, Via [facility] ED 17 weeks 511 01:42:00 04:37:00 y [facility] and on [place] epigastric pain [id number] 10/02/2015 10/02/2015 CLS Emergenc Kasi PAYNE, Via [facility] ED SI 340 20:15:00 23:59:59 y [facility] on [place] [id number] 10/01/2015 10/01/2015 DIS Emergenc Kasi PAYNE, Via [facility] ED Bleeding - 478 10:10:00 12:54:00 y [facility] 7 wks [facility] on [place] [id number] 06/18/2018 Document [id number] 05:18:39 Registra tion [id number] 06/18/2018 Document [id number] 05:18:38 Registra tion [id number] 06/17/2018 Document 766 23:25:00 Registra tion [id number] 05/05/2017 Document [id number] 05:20:58 Registra tion [id number] 05/04/2017 Document [id number] 05:16:13 Registra tion [id number] 05/03/2017 Document [id number] 05:15:32 Registra tion [id number] 04/23/2017 Document [id number] 05:21:27 Registra tion [id number] 04/14/2017 Document [id number] 05:19:55 Registra tion [id number] 03/08/2017 Document [id number] 05:15:25 Registra tion [id number] 01/12/2017 Document [id number] 05:16:45 Registra tion [id number] 12/16/2016 Document [id number] 05:17:14 Registra tion [id number] 10/05/2016 Document [id number] 05:15:50 Registra tion [id number] 06/01/2016 Document [id number] 05:16:22 Registra tion [id number] 05/31/2016 Document [id number] 05:16:04 Registra tion [id number] 05/26/2016 Document [id number] 05:17:30 Registra tion [id number] 12/18/2015 Document [id number] 05:17:37 Registra dakotah [id number] 11/26/2015 11/26/2015 DIS Outpatie NAVIN, [id number] 12:33:34 14:05:37 nikki MILLER
[2018-06-20 16:30] VITALS: BMI 32.9
[2018-06-20] MEDS ORDERED: OXYTOCIN DRIP 30 UNIT/500 ML ML IV PRN (17:39)
--- NOTE | 2018-06-20 18:04 | Labor and Delivery Triage Note ---
L&D Triage/Final Diagnosis - Visit Information Date of evaluation: 06/20/18 Reason for evaluation OB Triage: other (Labor) Expected Date of Delivery: 06/21/18 : 3 Para: 2 - Evaluation Baseline heart rate: 130 Variability: Moderate (5-25) monitor accelerations: Present monitor decelerations: None Cervical dilation (cm): 3 Cervical effacement (%): 70 station: -2 Abdominal Exam: Present: fundus firm Laboratory results: Laboratory Results - last 24 hr 06/20/18 15:07 WBC 10.0 RBC 3.66 L Hgb 8.8 L Hct 28.2 L MCV 77.0 L MCH 24.0 L MCHC 31.2 RDW Std Deviation 41.1 Plt Count 256 MPV 10.8 Vital signs: Last Vital Signs Temp 99.1 F 06/20/18 17:08 Pulse 68 06/20/18 17:08 Resp 20 06/20/18 17:08 BP 111/68 06/20/18 17:08 Pulse Ox 100 06/20/18 17:08 - Final Diagnosis (1) Active labor Current Visit: Yes Status: Acute
--- NOTE | 2018-06-20 18:37 | History and Physical ---
DATE OF SERVICE 06/20/2018 CHIEF COMPLAINT 1. Contractions and loss of fluid. 2. heart tones not noted by EMS. HISTORY OF PRESENT ILLNESS This is a 22-year-old G3, P2 who presented via ambulance and EMS to the emergency department at [facility]. She had originally called complaining of onset of labor with regular painful contractions and was being transferred to [facility] to their labor and delivery suite for where she received care from one of the resident physicians. When they were en route EMS was unable to find heart tones and made a detour to [facility]. She was met in the emergency department and transferred from the stretcher. She reported onset of labor this morning with positive loss of fluid but noted she had not felt movement for the last hour and EMS reports not being able to find heart tones. Vital signs were stable at this time. Bedside sono in the emergency department revealed heart tones of 130. Cervical exam revealed a cervical os of 370 and -3. The patient was then transferred to the labor and delivery suite. Once transferred to labor and delivery suite the patient was noted to be mervin every two to four minutes that were regular painful contractions and changed her cervix to 4 cm and she was admitted for labor. Upon review of her medical records she had a last menstrual period 08/30/2017, giving her an KRYSTAL of 06/06/2018, and a 19-week sono on January 27, 2018 noted to be 19 weeks 2 days at that time with an KRYSTAL of 06/21/2018 - a difference of ten days. We will be using the KRYSTAL of 06/21/2018. PAST MEDICAL HISTORY The patient denies any medical problems. PAST SURGICAL HISTORY The patient denies any surgical problems. PAST OBSTETRICAL HISTORY She revealed a spontaneous vaginal delivery at term without complications on her first delivery and a spontaneous vaginal delivery without complications on her second delivery. ALLERGIES She denies allergies to medications. SOCIAL HISTORY She denies tobacco, alcohol or drugs. She lives with her and recently moved from [place] three weeks ago. REVIEW OF SYSTEMS CONSTITUTIONAL: She denies fever or chills. EYES: No vision changes. ENT: No sore throat or nasal congestion. CARDIOVASCULAR: She denies chest pain. RESPIRATORY: She denies shortness of breath or cough. GI: She does report abdominal pain consistent with contractions but no nausea or vomiting or diarrhea. : She denies hematuria or burning, urgency or frequency but reports some loss of fluid. MUSCULOSKELETAL: She denies back pain. SKIN:: She denies rashes. NEUROLOGIC: She denies headache. PHYSICAL EXAM GENERAL APPEARANCE: She is in mild distress, especially with contractions. EYES: Pupils were equal and eye movement normal. ENT: Mucous membranes were moist. RESPIRATORY: There is no respiratory distress and respiratory pattern was nonlabored. CARDIOVASCULAR: Regular rate and rhythm. Normal capillary refill. GI: The uterus was gravid and she was noted to have contractions, palpate moderate to strong. heart tones were noted to be 130, reactive. Cervix was dilated to 3 cm. MUSCULOSKELETAL: The neck was supple, nontender. SKIN: Warm and dry. No rashes. NEUROLOGIC: She was alert and oriented and awake. ASSESSMENT/PLAN 22-year-old G3, P2 who presents in active labor. We will admit her, place IV and get records and laboratory. LABORATORY RECEIVED BACK Hemoglobin noted to be 8.8. Hematocrit 28.2, platelets were 256,000. GBS negative per patient. Denies any history of prior affected fetus. Rubella immune, hepatitis B nonreactive VDRL nonreactive. HIV nonreactive. Blood type A+. MTDD
[2018-06-20] MEDS ORDERED: NALOXONE 0.4 MG/ML INJECTION IVP PRN (23:04)
[2018-06-20] MEDS ORDERED: DiphenhydrAMINE 50 MG/ML INJECTION IVP PRN (23:04)
[2018-06-20] MEDS ORDERED: ROPIVACAINE 1% 10MG/ML INJ 200 MG, SUFentanil 50 MCG in NS 100 ML EPI PRN (23:04)
[2018-06-20] MEDS ORDERED: ONDANSETRON 4 MG/2 ML INJECTION IVP PRN (23:04)
--- NOTE | 2018-06-20 23:04 | Anesthesia Preoperative Report ---
Anesthesia Epidural/Spinal Rec - Date and Time Date: 06/20/18 Preoperative Diagnosis: Term Labor Procedure: Labor Epidural Plan: Epidural - Vital Signs Vital Signs: Temperature 99.1 F 06/20/18 17:08 Pulse Rate 68 06/20/18 17:08 Respiratory Rate 20 06/20/18 17:08 Blood Pressure 111/68 06/20/18 17:08 Pulse Oximetry 100 06/20/18 17:08 /Para: P:2 - Medictaions & Allergies Inpatient Medications: Current Medications Acetaminophen (Tylenol) 500 - 1,000 mg PO Q4H PRN PRN Reason: Pain Al Hydroxide/Mg Hydroxide (Maalox Plus) 30 ml PO Q3H PRN PRN Reason: Indigestion Calcium Carbonate (Tums) 500 - 1,000 mg PO Q2H PRN PRN Reason: Indigestion Carboprost Tromethamine (Hemabate) 250 mcg IM O PRN PRN Reason: .Downtime Dextrose/Lactated Ringer's (Dextrose 5%-Lactated Ringers) 1,000 mls @ 125 mls/ hr IV .Q8H MARY Last Admin: 06/20/18 15:35 Dose: 125 mls/hr Lactated Ringer's (Lactated Ringers) 1,000 mls @ 999 mls/hr IV .Q1H1M PRN Last Infusion: 06/20/18 15:46 Dose: 0 mls/hr Oxytocin (Pitocin Drip) 30 unit in 500 mls @ 2 mls/hr IV .Q24H PRN; Protocol PRN Reason: Induction/Augmentation Last Admin: 06/20/18 17:44 Dose: 2 mls/hr Lidocaine HCl (Xylocaine-Mpf 1% Vial) 0.2 mg ID O PRN PRN Reason: IV Start Methylergonovine Maleate (Methergine) 0.2 mg IM O PRN Misoprostol (Cytotec) 800 mcg NE ONCE PRN Sodium Chloride (Iv Flush) 10 - 80 ml IV PRN PRN PRN Reason: Flushing Allergies/Adverse Reactions: Allergies Allergy/AdvReac Type Severity Reaction Status Date / Time No Known Allergies Allergy Unverified 08/14/16 18:40 - Home Medications Home Medications: Home Medications Medication Instructions Recorded Confirmed Type NO ROUTINE MEDS #0 10/07/16 History - Medical History Respiratory: DENIES: Asthma, Bronchitis, Chronic Obstructive Pulmonary Disease (COPD), Dyspnea, Orthopnea, Pulmonary Embolism, Pneumonia, Upper Respiratory Infection, Pulmonary Edema, Sleep Apnea, Tuberculosis, Other Cardiovascular: DENIES: Abnormal EKG, Angina, Arrhythmia, Congestive Heart Failure, Coronary Artery Disease, Heart Murmur, Hypertension, Hypotension, High Cholesterol, Myocardial Infarction, Rheumatic Fever, Valvular Heart Disease, Other Gastrointestional: DENIES: Obstructive Bowel, Hepatitis, Cirrhosis, Nausea or Vomiting Present, Gastroesophageal Reflux Disease, Gastrointestinal Bleeding, Hiatal Hernia, Ulcer , Morbid Obesity, Other Neuro/Musculoskeletal: Denies: Back Problems, Cerebrovascular Accident, Depression, Headaches, Loss of Consciousness, Muscle Weakness, Neuromuscular Disorder, Paralysis, Paresthesia, Syncope, Seizures, Other Renal/Endocrine: DENIES: Diabetes Mellitus Type 1, Diabetes Mellitus Type 2, Renal Failure, Dialysis, Thyroid Disease, Weight Loss, Weight Gain, Other Other History: Reports: Now - Surgical History GI Surgery/Treatments: Reports: Cholecystectomy (2016) Reproductive Surgery/Treatment: DENIES: Section Anesthesia Reactions: None Hx Family Anesthesia Reaction: No History of Motion Sickness: No - Social History Smoking Status: Never smoker Second Hand Exposure: No Substance Use Type: does not use Alcohol Intake Frequency: does not drink - Pertinent Findings Lab Data: CBC and BMP 06/20/18 15:07 - Physical Exam Respiratory Exam: lungs clear, bilateral breath sounds equal Cardiovascular Exam: regular rate and rhythm, no murmur - Airway Assessment Mallampati Score: I TMD: 3 Fingerbreadths Neck Extension: good Overall Assessment: may be difficult intubation - ASA ASA Score: 2 - Discussion Discussion: Discussed risks/options/alternatives of anesthesia and questions answered. Patient consents. Nursing pain assessment noted. Anesthesia Discussion: spouse Attestation Statement: Prior to the delivery of any anesthetic medication, I examined the patient, developed the plan, obtained the patient's consent and discussed the risk and benefits of the procedure with the patient/guardian.
[2018-06-21] MEDS: D5LR 1,000 ML IV SCH (00:10)
[2018-06-21] MEDS ORDERED: MAG-AL + SIM ORAL LIQUID 30ml PO PRN (01:28)
[2018-06-21] MEDS ORDERED: DiphenhydrAMINE 25 MG CAPSULE PO PRN (01:28)
[2018-06-21] MEDS ORDERED: CALCIUM CARBONATE Chewable 500mg TABLET PO PRN (01:28)
[2018-06-21] MEDS ORDERED: HYDROCORTISONE 2.5% CREAM 30gm RECTALLY PRN (01:28)
[2018-06-21] MEDS ORDERED: ACETAMINOPHEN 500 MG TABLET PO PRN (01:28)
--- NOTE | 2018-06-21 01:28 | OB/GYN Procedure Note ---
Delivery date: 06/21/18 Events: Labor Augmentation Delivery augmentation: pitocin Delivery monitor: internal FHT, internal uterine Route of delivery: Episiotomy description: None Laceration description: Perineal - 2nd Degree Delivery repair: vicryl Estimated blood loss (mL): 100 Anesthesia type: Epidural Disposition: floor - [place] Baby 1 Infant gender: Female presentation: Vertex Placenta delivery description: Spontaneous cord vessel description: 3 Vessels at 1 minute: 8 at 5 minutes: 9
[2018-06-21] MEDS: IBUPROFEN 800 MG TABLET PO PRN ×3 (05:31→23:54)
[2018-06-21] MEDS: Oxycodone/Acetaminophen 5/325 1 TAB PO PRN ×2 (07:36→08:54)
--- NOTE | 2018-06-21 08:28 | Anesthesia Postoperative Note ---
- Date and Time Date: 06/21/18 Time: 08:28 - Status Patient Participated in Evaluation: Patient Participated in Person Vital Signs: Temperature 99.1 F 06/20/18 17:08 Pulse Rate 68 06/20/18 17:08 Respiratory Rate 20 06/20/18 17:08 Blood Pressure 111/68 06/20/18 17:08 Pulse Oximetry 100 06/20/18 17:08 Respiratory Function: Airway Patent Cardiovascular Function: Regular Pulse Mental Status: Alert and Oriented Pain Intensity: 8 (Azle given 30min ago) Hydration: Taking PO Fluids Nausea/Vomiting: None Complications During Recover: None Apparent - Follow-Up Instructions Instructions: Per Surgeon
[2018-06-21] MEDS: DOCUSATE CALCIUM 240 MG CAPSULE PO SCH (08:54)
--- NOTE | 2018-06-21 10:11 | Labor and Delivery Note ---
DATE OF SERVICE 06/21/2018 Normal spontaneous vaginal delivery of a live female named Carroll, in the OP position over intact perineum with epidural anesthesia. There was meconium noted and nose and mouth were suctioned on the perineum. No nuchal cord. Spontaneous delivery of the placenta with a three-vessel cord. There was a second-degree perineal laceration which was repaired with 2-0 Vicryl. Estimated blood loss was 100 mL. This is a G2, P3 who presented to [facility] emergency department via EMS with a history of onset of labor and decreased movement. They were not able to find heart tones en route and so they stopped here instead of proceeding to [place]. Upon presentation to the emergency department , sono was used to find heart tones, noted to be 130. Her cervical exam was noted to be 3 and 70. She was then moved to the labor and delivery suite. labs that could be obtained were reviewed. Patient changed her cervix to 4. She was admitted in active labor in which she slowly progressed with minimal change, only changing in effacement but not really changing in cervical dilatation but continued to have painful contractions. Forebag was noted and was ruptured. She was started to augment on Pitocin since she was not mervin that regularly. Eventually the patient got the epidural and when she made it to 6 cm, she progressed over the next four hours pretty quickly to complete, +2. She pushed for 10 minutes and three contractions and delivered the baby straight OP without difficulty. [facility]ITAL[facility]
[2018-06-21] MEDS: FERROUS SULFATE 324 MG TABLET PO SCH (11:16)
[2018-06-21] MEDS: HYDROCODONE/APAP 5mg/325mg TABLET PO PRN ×3 (14:53→23:54)
[2018-06-22 06:41] VITALS: PULSE 66; RESP 16
[2018-06-22] MEDS: HYDROCODONE/APAP 5mg/325mg TABLET PO PRN (06:48)
--- NOTE | 2018-06-22 08:17 | OB/GYN Progress Note ---
OB-PP Progress Note - General PPD1 Maternal Group B Strep: Not Done/No Results - Subjective Date: 06/22/18 Lochia: Moderate Pain: controlled Voiding: voiding Nausea or Vomiting Present: No - Objective Vital Signs: Last Vital Signs Temp 97.4 F 06/22/18 06:32 Pulse 66 06/22/18 06:32 Resp 16 06/22/18 06:32 BP 120/67 06/22/18 06:32 Pulse Ox 98 06/22/18 06:32 Urine Output: good General: alert and oriented Abdomen: fundus firm Extremities: non-tender Laboratory: Laboratory Results - last 24 hr 06/21/18 06/21/18 09:51 09:51 WBC 12.4 H RBC 3.64 L Hgb 8.8 L Hct 28.2 L MCV 77.5 L MCH 24.2 L MCHC 31.2 RDW Std Deviation 41.5 Plt Count 248 MPV 10.8 Turbidity < 20 Sodium 140 Potassium 3.4 L Chloride 112 H Carbon Dioxide 20 L Anion Gap 8 BUN 5.0 L Creatinine 0.6 L Estimated Creat Clear 147 GFR Calculation 126 BUN/Creatinine Ratio 8 Glucose 97 Calculated Osmolality 266 Calcium 8.5 Total Bilirubin 0.30 Icterus Index < 2 AST 19 ALT 8 Alkaline Phosphatase 140 H Total Protein 6.0 L Albumin 3.2 L Globulin 2.8 Albumin/Globulin Ratio 1.1 Specimen Hemolysis < 15 - Assessment (1) Active labor Status: Acute - Assessment Assessment: - Plan Plan: discharge home
[2018-06-22] MEDS: IBUPROFEN 800 MG TABLET PO PRN (09:15)
[2018-06-22] MEDS: DOCUSATE CALCIUM 240 MG CAPSULE PO SCH (09:16)
[2018-06-22] MEDS: FERROUS SULFATE 324 MG TABLET PO SCH (09:16)
[2018-06-22 15:46] VITALS: BP 118/65; TEMP 97.6; O2SAT 97
== END 2018-06-22 18:33 | disposition home or self-care (01) | DRG 775 ==
LOC: ED 14:29 → MC 14:36
PROVIDERS: ADMIT Obstetrics & Gynecology; ATTEND Obstetrics & Gynecology